=== PATIENT | female | born 1965 | race Caucasian/White ===

== ENCOUNTER 2023-12-19 11:01 | Day surgery (SDC) | payer OTHER ==
[~2023-12-19] VITALS: Ht 160 cm; Wt 68.0 kg
[~2023-12-19 11:01] MED LIST: ALBU8.5H; ARIP1TAB4 PO; ARIP1TAB6 PO; ATOR1TAB21 PO; BUPR8SUB SL; LEXA1TAB2; LEXA1TAB2 PO; LIDOCAINE 3.5 % 1ML OPHTH TOPICAL GEL OU ONE; METH60CA PO; OMEP40CA5 PO; ROPI0.5T33 PO; TRAZ-257 PO
[2023-12-19] MEDS ORDERED: LIDOCAINE 1% SDV 5ML VIAL SC PRN (13:15)
[2023-12-19] MEDS ORDERED: MIDAZOLAM INJ 2MG/2ML VIAL As Ordered ONE (13:57)
[2023-12-19] MEDS: POVIDONE-IODINE 5% OPHTH PREP SOL 30ML As Ordered ONE (14:39)
[2023-12-19] MEDS ORDERED: propofoL 200 MG/20 ML VIAL As Ordered ONE (14:43)
[2023-12-19] MEDS: LIDOCAINE 2% W/EPINEPHRINE 20ML VIAL **PRES FREE As Ordered ONE (14:47)
[2023-12-19] MEDS: CIPROFLOXACIN 0.3% OPHTH OINTMENT As Ordered ONE (15:01)
[2023-12-19] MEDS: TETRACAINE 0.5% OPHTH SOLN 4ML As Ordered ONE (15:02)
[2023-12-19 15:08] VITALS: BP 125/57; TEMP 97.5; O2SAT 97
== END 2023-12-19 15:35 | disposition home or self-care (01) ==
LOC: M SDC 11:01
PROVIDERS: ATTEND Ophthalmology
DX: H02.401 Unspecified ptosis of right eyelid (principal); E78.5 Hyperlipidemia, unspecified; K21.9 Gastro-esophageal reflux disease without esophagitis; G43.909 Migraine, unspecified, not intractable, without status migrainosus; F12.10 Cannabis abuse, uncomplicated; F17.218 Nicotine dependence, cigarettes, with other nicotine-induced disorders; F41.9 Anxiety disorder, unspecified; F32.A Depression, unspecified; F90.9 Attention-deficit hyperactivity disorder, unspecified type; J44.9 Chronic obstructive pulmonary disease, unspecified; Z79.51 Long term (current) use of inhaled steroids; Z79.899 Other long term (current) drug therapy; Z88.2 Allergy status to sulfonamides; Z88.8 Allergy status to other drugs, medicaments and biological substances
CPT/HCPCS: 15823; J2250